=== PATIENT | female | born 1950 ===

== ENCOUNTER 2017-06-26 06:35 | Outpatient (CLI) | payer OTHER ==
[~2017-06-26 06:35] MED LIST: AVALIDE 300-12.1 TAB PO; GABAPENTIN300 MG PO; TAMOXIFEN CITRA10 MG PO
== END 2017-06-26 06:51 | disposition home or self-care (01) ==
LOC: LAB 06:35
DX: D64.9 Anemia, unspecified (principal); R74.0 Nonspecific elevation of levels of transaminase and lactic acid dehydrogenase [LDH]; D05.12 Intraductal carcinoma in situ of left breast; Z17.0 Estrogen receptor positive status [ER+]; Z85.3 Personal history of malignant neoplasm of breast; C50.412 Malignant neoplasm of upper-outer quadrant of left female breast

== ENCOUNTER 2017-07-01 10:25 | Outpatient (CLI) | payer OTHER | END 2017-07-01 10:39 | disposition home or self-care (01) | LOC: RAD 10:25 | DX: M25.551 Pain in right hip (principal) ==

== ENCOUNTER 2017-07-02 10:09 | Outpatient (CLI) | payer OTHER | END 2017-07-02 10:27 | disposition home or self-care (01) | LOC: SONOGRAMA 10:09 → MAMO-SONO 10:15 → SONOGRAMA 10:27 | DX: D25.9 Leiomyoma of uterus, unspecified (principal) ==

== ENCOUNTER 2017-08-07 07:58 | Outpatient (CLI) | payer OTHER ==
[~2017-08-07 07:58] MED LIST changes: +DICLOFENAC POTA50 MG PO
== END 2017-08-07 08:15 | disposition home or self-care (01) ==
LOC: LAB 07:58
DX: E83.51 Hypocalcemia (principal); D50.8 Other iron deficiency anemias; N83.209 Unspecified ovarian cyst, unspecified side; E78.00 Pure hypercholesterolemia, unspecified; E03.8 Other specified hypothyroidism; N39.0 Urinary tract infection, site not specified; D68.8 Other specified coagulation defects

== ENCOUNTER 2017-08-08 09:07 | Outpatient (CLI) | payer OTHER | END 2017-08-08 10:12 | disposition home or self-care (01) | LOC: MRI 09:07 | DX: N83.202 Unspecified ovarian cyst, left side (principal); Z85.3 Personal history of malignant neoplasm of breast ==

== ENCOUNTER → 2017-08-20 | Outpatient (CLI) | payer OTHER | END | disposition home or self-care (01) | LOC: RAD 08:02 | DX: Z13.6 Encounter for screening for cardiovascular disorders (principal) ==

== ENCOUNTER 2017-08-28 08:00 | Inpatient (IN) | payer OTHER ==
[~2017-08-28] VITALS: Ht 165.1 cm; Wt 74.8 kg
[2017-09-03] MEDS ORDERED: M.V.I. ADULT10 ML IV (10:08)
[2017-09-03] MEDS ORDERED: OSTERA TABLET1 EACH PO (10:08)
== END 2017-09-08 09:19 | disposition home or self-care (01) | DRG 738 ==
LOC: ADM 08:00 → O/R 09-05 05:35 → CIR.AMB 09-05 07:00 → O/R 09-05 11:30 → EDSTATUS 09-05 11:30 → CIR.AMB 09-05 11:30 → OB/GYN 09-05 12:20
PROVIDERS: Specialist
PROC: 0UT70ZZ Resection of Bilateral Fallopian Tubes, Open Approach (ICD-10-PCS; 2017-09-05)
PROC: 0UT20ZZ Resection of Bilateral Ovaries, Open Approach (ICD-10-PCS; 2017-09-05)
PROC: 0UT90ZZ Resection of Uterus, Open Approach (ICD-10-PCS; principal; 2017-09-05 07:00)
DX: D39.11 Neoplasm of uncertain behavior of right ovary (principal); D25.1 Intramural leiomyoma of uterus; I10 Essential (primary) hypertension; C50.912 Malignant neoplasm of unspecified site of left female breast; M70.72 Other bursitis of hip, left hip; M70.11 Bursitis, right hand; M76.02 Gluteal tendinitis, left hip; M54.5 Low back pain; N72 Inflammatory disease of cervix uteri; N80.0 Endometriosis of uterus

== ENCOUNTER → 2017-09-23 12:41 | Outpatient (CLI) | payer OTHER ==
[~2017-09-23 12:41] MED LIST changes: +M.V.I. ADULT10 ML IV; +OSTERA TABLET1 EACH PO
== END | disposition home or self-care (01) ==
LOC: LAB 12:41
DX: C56.2 Malignant neoplasm of left ovary (principal); Z51.81 Encounter for therapeutic drug level monitoring

== ENCOUNTER 2017-09-30 07:41 | Outpatient (CLI) | payer OTHER | END 2017-09-30 07:54 | disposition home or self-care (01) | LOC: LAB 07:41 | DX: C56.2 Malignant neoplasm of left ovary (principal); D27.9 Benign neoplasm of unspecified ovary; D39.10 Neoplasm of uncertain behavior of unspecified ovary ==

== ENCOUNTER 2017-09-30 08:22 | Outpatient (CLI) | payer OTHER | END 2017-09-30 08:39 | disposition home or self-care (01) | LOC: TOM 08:22 | DX: C56.2 Malignant neoplasm of left ovary (principal) ==

== ENCOUNTER 2017-10-06 15:10 | Outpatient (CLI) | payer OTHER | END 2017-10-06 15:11 | disposition home or self-care (01) | LOC: LAB 15:10 | DX: C56.2 Malignant neoplasm of left ovary (principal) ==

== ENCOUNTER 2018-12-03 10:07 | Outpatient (CLI) | payer OTHER | END 2018-12-03 10:10 | disposition home or self-care (01) | LOC: RAD 10:07 | DX: M48.47XA Fatigue fracture of vertebra, lumbosacral region, initial encounter for fracture (principal); M12.89 Other specific arthropathies, not elsewhere classified, multiple sites ==

== ENCOUNTER 2021-11-01 13:53 | Outpatient (CLI) | payer OTHER | END 2021-11-01 13:58 | disposition home or self-care (01) | LOC: RAD 13:53 | PROVIDERS: ATTEND Internal Medicine Cardiovascular Disease | DX: M12.9 Arthropathy, unspecified (principal) ==